=== PATIENT | female | born 1940 | race Caucasian/White ===

== ENCOUNTER 2018-07-27 05:49 | Day surgery (SDC) | payer MEDICARE ==
[~2018-07-27] VITALS: Ht 165.1 cm; Wt 100.3 kg
[2018-07-27] VITALS (12 sets, daily range): BP systolic 139–174; BP diastolic 90–120; PULSE 66–120; TEMP 68–97.6
[~2018-07-27 05:49] MED LIST: ANTI-GAS 8080 MG PO; FE-TABS325 MG PO; FOLIC ACID 40400 MCG PO; LISINOPRIL-HYDR1 TA1 PO; SYNTHROID0.05 MG/TA PO; VITAMIN C500 MG PO; ZOCOR 80MG80 MG PO
[2018-07-27 06:36] LABS: HEMOGLOBIN 14.5 g/dl (12.5-16.0); MEAN CELL VOLUME 95 fl (80.0-100.0); MEAN CORPUSCULAR HEMOGLOBIN 33 pg (27.0-31.0); MEAN CORPUSCULAR HGB CONC 35 g/dl (33.0-37.0); MEAN PLATELET VOLUME 10.4 fl (7.4-10.4); PLATELET COUNT 276 K/mm3 (130-400); RED BLOOD COUNT 4.44 M/mm3 (4.10-5.30); REDCELL DISTRIBUTION WIDTH-CV 13.2 % (11.5-14.5)
[2018-07-27 06:42] LABS: INR 0.9 (0.8-3.0); PROTHROMBIN TIME 10.3 SECONDS (9.7-12.8)
[2018-07-27 06:48] LABS: CALCIUM 9.8 mg/dL (8.4-10.2); CREATININE, serum 1.22 mg/dL (0.52-1.25); POTASSIUM 3.8 mmol/L (3.4-5.0)
[2018-07-27] MEDS ORDERED: ASPIRIN 81M81 MG/TA2 PO (07:42)
[2018-07-27] MEDS ORDERED: PLAVIX 75MG TAB75 MG PO (07:44)
[2018-07-27] MEDS ORDERED: NORVASC 5MG5 MG/TAB PO (07:45)
[2018-07-27] MEDS ORDERED: OSTEO-BI-FLEX 21 TAB PO (07:47)
[2018-07-27] MEDS ORDERED: EPA FISH OIL1 SGL PO (07:47)
[2018-07-27] MEDS ORDERED: CALCIUM-MAGNES1 EAC1 PO (07:48)
[2018-07-27] MEDS ORDERED: VITAMIN FLUSH-F1 CAP PO (07:49)
[2018-07-27] MEDS ORDERED: VITAMIN B COMPL1 SGL PO (07:49)
[2018-07-27] MEDS ORDERED: ALEVE 220MG220 MG PO (07:50)
== END 2018-07-27 12:30 | disposition home or self-care (01) ==
LOC: COL.CAR 05:49
PROVIDERS: Internal Medicine Interventional Cardiology
DX: R07.9 Chest pain, unspecified (principal); I10 Essential (primary) hypertension; R94.39 Abnormal result of other cardiovascular function study; F43.9 Reaction to severe stress, unspecified; I51.7 Cardiomegaly; I51.89 Other ill-defined heart diseases; I34.0 Nonrheumatic mitral (valve) insufficiency; Z82.49 Family history of ischemic heart disease and other diseases of the circulatory system; Z82.3 Family history of stroke
CPT/HCPCS: J1644; J3010

== ENCOUNTER 2018-07-30 16:59 | Emergency (ER) | payer MEDICARE ==
[~2018-07-30] VITALS: Ht 165.1 cm; Wt 101.8 kg
[~2018-07-30 16:59] MED LIST changes: +ALEVE 220MG220 MG PO; +ASPIRIN 81M81 MG/TA2 PO; +CALCIUM-MAGNES1 EAC1 PO; +EPA FISH OIL1 SGL PO; +NORVASC 5MG5 MG/TAB PO; +OSTEO-BI-FLEX 21 TAB PO; +PLAVIX 75MG TAB75 MG PO; +VITAMIN B COMPL1 SGL PO; +VITAMIN FLUSH-F1 CAP PO
[2018-07-30 17:00] VITALS: TEMP 98.7
[2018-07-30] MEDS ORDERED: LOPRESSOR 225 MG/TAB (18:03)
[2018-07-30 18:07] VITALS: BP 122/72; PULSE 90
== END 2018-07-30 18:09 | disposition home or self-care (01) ==
LOC: COL.ER 16:59
DX: N99.89 Other postprocedural complications and disorders of genitourinary system (principal); S40.811A Abrasion of right upper arm, initial encounter; R00.0 Tachycardia, unspecified; I10 Essential (primary) hypertension; I25.10 Atherosclerotic heart disease of native coronary artery without angina pectoris; Z79.82 Long term (current) use of aspirin; Z79.02 Long term (current) use of antithrombotics/antiplatelets; Z23 Encounter for immunization; W22.8XXA Striking against or struck by other objects, initial encounter

== ENCOUNTER → 2018-08-02 | Outpatient (CLI) | payer MEDICARE ==
[~2018-08-02] MED LIST changes: +LOPRESSOR 225 MG/TAB
== END ==
LOC: COL.RAD 08:07
DX: I72.4 Aneurysm of artery of lower extremity (principal); N28.1 Cyst of kidney, acquired; N28.9 Disorder of kidney and ureter, unspecified; E27.9 Disorder of adrenal gland, unspecified; Z96.643 Presence of artificial hip joint, bilateral
CPT/HCPCS: Q9967

== ENCOUNTER 2018-08-14 12:47 | Outpatient (CLI) | payer MEDICARE ==
[~2018-08-14] VITALS: Ht 165.2 cm; Wt 102.2 kg
[2018-08-14] MEDS ORDERED: PRINIVIL10 MG PO (13:56)
[2018-08-14 14:25] VITALS: BP 192/91; PULSE 58
[2018-08-14 15:17] VITALS: BP 184/87; PULSE 52
== END 2018-08-14 15:18 | disposition home or self-care (01) ==
LOC: EUO 12:47
DX: I72.9 Aneurysm of unspecified site (principal)

== ENCOUNTER 2018-12-07 11:57 | Inpatient (IN) | payer MEDICARE ==
[~2018-12-07] VITALS: Ht 165.1 cm; Wt 99.7 kg
[~2018-12-07 11:57] MED LIST changes: +PRINIVIL10 MG PO
[2018-12-07 13:24] VITALS: BP 194/93; PULSE 73; TEMP 97.8
[2018-12-07] MEDS ORDERED: TOPROL XL 50MG50 MG PO (13:43)
[2018-12-07 16:01] VITALS: BP 156/93; PULSE 73; TEMP 98.8
--- NOTE | 2018-12-07 17:51 | NUR ---
Patient has done well since admission from [facility]. She has rested this afternoon without complaints of nausea or pain. Her daughter has been at bedside. IVF per orders. NG to LIS. Vss on O2, patient slightly hypertensive. She has not yet voided. Warm blanket for comfort. Will report off to night nurse
[2018-12-07 19:35] VITALS: BP 138/84; PULSE 82; TEMP 98.5
--- NOTE | 2018-12-07 20:36 | NUR ---
PT WAS SITTING IN RECLINER BUT ASSISTED BACK TO BED, WITH HOB ELEVATED TO 45 DEGREE ANGLE. PT ADVISES THAT SHE FEELS BETTER, ALSO, HAS NG TUBE ON CONTINUOUS SUCTION AND BLACK CONTENT COMING UP. STARTED WITH 400ML IN CANISTER AND CURRENTLY HAS 450ML. NO NEEDS AT THIS TIME, CALL LIGHT WITHIN REACH.
[2018-12-07 23:58] VITALS: BP 131/59; PULSE 76; TEMP 98.2
--- NOTE | 2018-12-08 00:30 | NUR ---
PT'S O2 SATS ON RA WAS 84%. PT HAD HOB ELEVATED TO 45 DEGREE ANGLE, BUT PT WAS DOWN IN THE BED AND PT'S NECK WAS BENT. HAD PT MOVE UP IN BED AND APPLIED NC AT 3L. O2 SATS WENT UP TO 93%. CALLED RT AND HAD RT PUT ON AN OXYMASK FOR PT. PT'S O2 SATS WITH OXYMASK 93% THE SAME NC. PT ADVISES THAT IT DOESN'T FEEL ANY DIFFERENT. PT TRYING TO GET SOME SLEEP. PT ADVISES THAT SHE FEELS A LOT BETTER THAN WHAT SHE DID EARLIER AND DOES NOT HAVE ANY PAIN AT THIS TIME. NO NEEDS AT THIS TIME, CALL LIGHT WITHIN REACH.
[2018-12-08 03:59] VITALS: BP 148/67; PULSE 58; TEMP 98.2
--- NOTE | 2018-12-08 04:57 | NUR ---
PT HAD WAKEN AGAIN DURING THE NIGHT AND HAD TAKEN OFF THE OXYMASK THAT RT PLACED ON HER. THE PT FELT LIKE THE NG-TUBE WAS PULLING. INSPECTED TUBING AND PLACED CLOSER TO PT AND TUBING THAT WAS HANGING OFF OF BED, PLACED ON THE BED. PT ADVISED THAT THAT FELT SO MUCH BETTER. ALSO, O2 SATS WENT BACK DOWN TO 84%. PLACED NASAL CANULA ON PT WITH 3L OXYGEN. O2 WAS STILL AT 84% AFTER WAITING A FEW MINUTES. INCREASED O2 TO 4L AND O2 SATS WENT BACK UP TO 94%. CALL RT TO ADVISE THEM OF THE INCREASE IN OXYGEN AND THAT SHE WAS PLACED BACK ON THE NASAL CANULA. NO FURTHER NEEDS AND CALL LIGHT WITHIN REACH.
[2018-12-08 06:04] LABS: HEMOGLOBIN 16.3 g/dl (12.5-16.0); MEAN CELL VOLUME 96 fl (80.0-100.0); MEAN CORPUSCULAR HEMOGLOBIN 32 pg (27.0-31.0); MEAN CORPUSCULAR HGB CONC 33 g/dl (33.0-37.0); MEAN PLATELET VOLUME 11.3 fl (7.4-10.4); PLATELET COUNT 265 K/mm3 (130-400); RED BLOOD COUNT 5.13 M/mm3 (4.10-5.30); REDCELL DISTRIBUTION WIDTH-CV 13.2 % (11.5-14.5)
[2018-12-08 06:24] LABS: CALCIUM 9.7 mg/dL (8.4-10.2); CREATININE, serum 1.38 mg/dL (0.52-1.25)
[2018-12-08 08:50] VITALS: BP 143/74; PULSE 75; TEMP 98.4
--- NOTE | 2018-12-08 09:23 | NUR ---
Pt alert and oriented. Pt denies abdominal pain. Pt has urge to cough this am. Pt NG tube LIS orders to clamp and monitor if pt tolerates. Pt am assessment completed. pt has call light in reach. Pt Gtube drainage black and 650 ml noted. Pt RAC IV patent and has LR running. Pt denies needs at this time.
[2018-12-08 11:49] VITALS: BP 149/79; PULSE 65; TEMP 98.2
--- NOTE | 2018-12-08 14:09 | NUR ---
Plan to reutrn home. SW met with patient DTR and Son in room. Patient reports that she is independent and does not require any assistance in the home. PT reports that [employer] Starks is her DPOA , Patient reports that she has DME's but denies use. PT reports Dr. Hardy. Uses [employer], or [facility] for short-term. No additonal needs.
[2018-12-08 15:09] VITALS: BP 150/75; PULSE 58; TEMP 98
--- NOTE | 2018-12-08 19:16 | NUR ---
Patient sleeping, but easily arousable. Pt denies pain or nausea. NGT hooked to intermitent wall suction with dark brown output. Clamped per MD order. Will reassess for change of status. BS positive in all quadrants. Pt states she is passing flatus.
[2018-12-08 19:24] VITALS: BP 154/60; PULSE 62; TEMP 98.4
--- NOTE | 2018-12-08 21:50 | NUR ---
L nare Nasogastric tube discontinued per MD order. Well tolerated by patient. Will continue to monitor.
[2018-12-09 04:12] VITALS: BP 143/83; PULSE 80; TEMP 98.4
--- NOTE | 2018-12-09 06:40 | NUR ---
Patient sitting up in bed. States she feels "uneasy". Denies that she feels nauseated and denies abdominal pain. States she is "burping up a lot". States that it feels much better from when she was admitted.
[2018-12-09 07:11] VITALS: BP 124/71; PULSE 85; TEMP 98.2
--- NOTE | 2018-12-09 08:00 | NUR ---
Denies pain or nausea. States is burping and passing a little gas. Abdomen soft with hypoactive bowel sounds. Returned to sleep.
[2018-12-09 11:32] VITALS: BP 120/62; PULSE 75; TEMP 98
--- NOTE | 2018-12-09 15:00 | NUR ---
Ambulated in halls for second time this shift. Activity tolerated well. No c/o pain or nausea.
[2018-12-09 15:09] VITALS: BP 149/70; PULSE 58; TEMP 98.3
--- NOTE | 2018-12-09 17:00 | NUR ---
Vomited after drinking a milkshake. Denied need for nausea med.
[2018-12-09 19:57] VITALS: BP 144/57; PULSE 56; TEMP 98.9
[2018-12-09 23:49] VITALS: BP 149/68; PULSE 63; TEMP 98.9
[2018-12-10] VITALS (13 sets, daily range): BP systolic 112–152; BP diastolic 59–77; PULSE 46–63; TEMP 97.5–98.9
--- NOTE | 2018-12-10 05:50 | NUR ---
PT IN BED. GAIT STEADY. MORPHINE ADMIN. x1 FOR BACK PAIN. NO N/V. ABDOMEN STILL A BIT DISTENDED. PT REPORTS SHE'S PASSING SOME GAS.
[2018-12-10 07:14] LABS: HEMATOCRIT 47.1 % (37.0-47.0); HEMOGLOBIN 15.2 g/dl (12.5-16.0); MEAN CELL VOLUME 97 fl (80.0-100.0); MEAN CORPUSCULAR HEMOGLOBIN 31 pg (27.0-31.0); MEAN CORPUSCULAR HGB CONC 32 g/dl (33.0-37.0); PLATELET COUNT 221 K/mm3 (130-400); RED BLOOD COUNT 4.86 M/mm3 (4.10-5.30); REDCELL DISTRIBUTION WIDTH-CV 12.8 % (11.5-14.5)
[2018-12-10 07:20] LABS: CALCIUM 9.2 mg/dL (8.4-10.2); CREATININE, serum 1.12 mg/dL (0.52-1.25)
[2018-12-10 07:52] LABS: POTASSIUM 4.1 mmol/L (3.4-5.0)
--- NOTE | 2018-12-10 09:00 | NUR ---
Patient alert and oriented, answers questions appropriately. See assessment. Abdomen round, distended. Bowel sounds hypoactive x4 quads. No flatus. C/o abdominal pain 07/06. No other c/o at this time.
--- NOTE | 2018-12-10 11:13 | NUR ---
Initial visit; Patient thanked [facility] for offering prayer and God's blessings. Tape Deck Installer will follow up.
--- NOTE | 2018-12-10 17:30 | NUR ---
Patient returns from PACU. Assessment unchanged except for abdomen with lap sites x4. Abdomen soft, non distended. Bowel sounds hypoactive, no flatus. No c/o pain or discomfort.
--- NOTE | 2018-12-10 20:00 | NUR ---
Patient in bed. Has oxygen at 2L/nc. Reports feeling much better. Lap sites to abdomen are glued shut, dry and intact. Taking deeper breaths without pain. IV LR infusing at 75cc/hr to right AC without redness or swelling. Denies need for pain meds at this time.
[2018-12-11 03:40] VITALS: BP 137/74; PULSE 61; TEMP 98.2
--- NOTE | 2018-12-11 06:00 | NUR ---
Patient hungry and wanting to eat today. Has taken beef broth through the night without nausea or vomiting. Denies pain. IV continues to right AC without problem.
[2018-12-11 06:28] LABS: HEMATOCRIT 41.6 % (37.0-47.0); HEMOGLOBIN 13.5 g/dl (12.5-16.0); MEAN CELL VOLUME 99 fl (80.0-100.0); MEAN CORPUSCULAR HEMOGLOBIN 32 pg (27.0-31.0); MEAN CORPUSCULAR HGB CONC 33 g/dl (33.0-37.0); MEAN PLATELET VOLUME 11.5 fl (7.4-10.4); PLATELET COUNT 209 K/mm3 (130-400); RED BLOOD COUNT 4.21 M/mm3 (4.10-5.30); REDCELL DISTRIBUTION WIDTH-CV 12.9 % (11.5-14.5)
[2018-12-11 06:44] LABS: CALCIUM 8.3 mg/dL (8.4-10.2); CREATININE, serum 1.01 mg/dL (0.52-1.25); POTASSIUM 4.6 mmol/L (3.4-5.0)
--- NOTE | 2018-12-11 07:31 | NUR ---
Patient alert and oriented, answers questions appropriately. See assessment. Abdomen soft, non distended. Bowel sounds distant x4 quads. No flatus. States feels stomach "rumbling". Lap sites with edges well approximated, no redness or drainage noted. No pain with palpation. States is going to walk frequently in halls to "get by bowels going so I can get home". INT to RAC leaking/infiltrated, discontinued at this time. No other c/o at this time.
[2018-12-11 08:19] VITALS: BP 149/67; PULSE 52; TEMP 98.2
--- NOTE | 2018-12-11 09:12 | NUR ---
Dr Robb here to see patient.
[2018-12-11 12:59] VITALS: BP 123/57; PULSE 62; TEMP 97.9
[2018-12-11 16:00] VITALS: BP 143/62; PULSE 62; TEMP 98.1
--- NOTE | 2018-12-11 20:00 | NUR ---
Patient ambulating in her room, complains of gas pains. Reports soft stools x4 today. Lap sites to abdomen glued and dry. Family at bedside.
[2018-12-11 20:11] VITALS: BP 132/53; PULSE 62; TEMP 97.9
[2018-12-12 00:01] VITALS: BP 138/63; PULSE 98; TEMP 97.9
[2018-12-12 03:25] VITALS: BP 135/62; PULSE 58; TEMP 98
[2018-12-12 08:04] VITALS: BP 132/73; PULSE 63; TEMP 98.8
--- NOTE | 2018-12-12 11:00 | NUR ---
Patient has been up walking in the hallways. No complaints of pain. Denies nausea. She stated having some gas pain but that it gets better with walking. Tolerating regular diet well. No other changes at this time. Call light within reach.
[2018-12-12 12:32] VITALS: BP 152/63; PULSE 65; TEMP 99.1
--- NOTE | 2018-12-12 15:50 | NUR ---
Patient is discharging home. Discharge instructions discussed with patient. Copies of discharge instructions sent with patient. Explained when follow up appointment is. No new prescriptions. Patient is being walked out via wheel chair by Jaja MAXWELL.
== END 2018-12-12 15:50 | disposition home or self-care (01) | DRG 336 ==
LOC: SURG 11:57
PROVIDERS: ADMIT Surgery
PROC: 0DNW4ZZ Release Peritoneum, Percutaneous Endoscopic Approach (ICD-10-PCS; 2018-12-10)
PROC: 0DNB4ZZ Release Ileum, Percutaneous Endoscopic Approach (ICD-10-PCS; principal; 2018-12-10 12:00)
DX: K56.51 Intestinal adhesions [bands], with partial obstruction (principal); I47.1 Supraventricular tachycardia; I10 Essential (primary) hypertension; E78.5 Hyperlipidemia, unspecified
CPT/HCPCS: J0330; J0690; J1100; J1650; J1885; J2270; J2405; J2704; J2710; J3010; J7120

== ENCOUNTER 2020-02-06 06:36 | Emergency (ER) | payer MEDICARE ==
[~2020-02-06] VITALS: Ht 165.1 cm; Wt 103.2 kg
[~2020-02-06 06:36] MED LIST changes: +TOPROL XL 50MG50 MG PO
[2020-02-06] MEDS ORDERED: AMOXICILLIN875 MG PO ×2 (07:04)
[2020-02-06] MEDS ORDERED: DOXYCYCLINE 10100 MG PO (07:53)
[2020-02-06 08:30] VITALS: BP 140/91; PULSE 73; TEMP 98.1
== END 2020-02-06 08:30 | disposition home or self-care (01) ==
LOC: COL.ER 06:36
DX: J02.9 Acute pharyngitis, unspecified (principal); I10 Essential (primary) hypertension